=== PATIENT | female | born 1960 | race Caucasian/White ===

== ENCOUNTER 2017-01-11 21:37 | Emergency (ER) | payer MEDICAID ==
[~2017-01-11] VITALS: Ht 157.5 cm; Wt 88.4 kg
[~2017-01-11 21:37] MED LIST: FURO20 PO; GABA400C5 PO; LORA-392 PO; MECL25 PO; PERC10TA27 PO; POTA20PA PO
[2017-01-11 21:46] VITALS: BP 136/83; PULSE 84; RESP 16; TEMP 97.3; O2SAT 97
[2017-01-11] MEDS ORDERED: LISI-515 PO (22:09)
[2017-01-11] MEDS ORDERED: XANA1TAB2 PO (22:09)
[2017-01-11] MEDS ORDERED: FURO1TAB62 PO (22:09)
[2017-01-11] MEDS ORDERED: ONDANSETRON HCL 4 MG/2 ML VIAL IM ONE (22:15)
[2017-01-11] MEDS ORDERED: MORPHINE SULFATE 4 MG/ML INJ IM ONE (22:15)
[2017-01-11] MEDS ORDERED: KETOROLAC TROMETHAMINE 60 MG/2 ML (IM) VIAL IM ONE (22:15)
--- NOTE | 2017-01-11 22:26 | PD ---
HPI Chief Complaint: Fall Time Seen by Provider: 22:23 Travel History International Travel<30 days: No Contact w/Intl Traveler<30days: No Traveled to known affect area: No History of Present Illness HPI 57-year-old female that presents to the ED for evaluation of trip and fall today. Per patient this happened around 8:00. Patient apparently slipped and fell using sandals. Patient landed on her left side. Mainly on the left shoulder as well as the left ribs. Patient has chronic numbness to the lower legs secondary to back injuries. Per patient she has 10 out of 10 pain. Examination patient is anxious and sobbing. She states that most of her pain is on her left rib cage. She points to the area just below the breast. She denies any prior injuries to this area. She also complains of left shoulder pain. No arm pain. No head injury or loss of consciousness. Patient is accompanied by family members who because patient did not hit her head or lose consciousness. No blurred vision or double vision. She does have a significant history of anxiety and chronic pain. Allergies to Imitrex and sulfa. Per patient she also has back pain in her mid back. No abdominal pain. No nausea or vomiting. PFSH Past Medical History Arthritis: Yes Anxiety: Yes Cardiac Catheterization: Yes Cardiovascular Problems: Yes COPD: Yes Diminished Hearing: No Hypertension: Yes Musculoskeletal: Yes (bone on bone lt numbness legs) Respiratory: Yes (COPD) Immunizations Current: Yes Myocardial Infarction: Yes Tetanus Vaccination: < 5 Years Influenza Vaccination: Yes ?: Not Menopausal: Yes Social History Alcohol Use: No Tobacco Use: No (QUIT 1999) Substance Use: No Allergies-Medications (Allergen,Severity, Reaction): Coded Allergies: Imitrex (Verified Allergy, Unknown, Chest Pain, 01/11/17) Sulfa (Verified Allergy, Unknown, Hives, 01/11/17) Reported Meds & Prescriptions Reported Meds & Active Scripts Active Reported Xanax (Alprazolam) 1 Mg Tab 1 Mg PO BID PRN Lasix (Furosemide) 20 Mg Tab 20 Mg PO DAILY Lisinopril 20 Mg Tab 20 Mg PO DAILY Review of Systems Except as stated in HPI: all other systems reviewed are Neg Physical Exam Narrative GENERAL: SKIN: Warm and dry. HEAD: Atraumatic. Normocephalic. EYES: Pupils equal and round. No scleral icterus. No injection or drainage. ENT: No nasal bleeding or discharge. Mucous membranes pink and moist. Tongue is midline. No uvula deviation. NECK: Trachea midline. No JVD. CARDIOVASCULAR: Regular rate and rhythm. No murmurs, S3, S4. RESPIRATORY: No accessory muscle use. Clear to auscultation. Breath sounds equal bilaterally. GASTROINTESTINAL: Abdomen soft, non-tender, nondistended. Hepatic and splenic margins not palpable. MUSCULOSKELETAL: Extremities without clubbing, cyanosis, or edema. No obvious deformities. Full range of motion of the upper and lower extremities bilaterally with exception of the left shoulder which he has pain with abduction. Patient has pain with palpation of the left rib cage. No obvious deformity noted. No obvious cervical, thoracic, lumbar spine tenderness to palpation. Full range of motion lower extremities with 2+ pulses bilaterally. NEUROLOGICAL: Awake and alert. No obvious cranial nerve deficits. Motor grossly within normal limits. Five out of 5 muscle strength in the arms and legs. Normal speech. PSYCHIATRIC: Appropriate mood and affect; insight and judgment normal. Data Data Last Documented VS Vital Signs Date Time Temp Pulse Resp B/P Pulse Ox O2 Delivery O2 Flow Rate FiO2 01/11/17 22:09 01/11/17 21:46 97.3 84 16 97 Orders Morphine Inj (Morphine Inj) (01/11/17 22:15) Ondansetron Inj (Zofran Inj) (01/11/17 22:15) Ketorolac Inj (Toradol Inj) (01/11/17 22:15) Shoulder, Complete (>2vws) (01/11/17 22:21) Ice/Cold Pack (01/11/17 22:21) Ribs, Uni (W/Exp Cxr-Min 3vw) (01/11/17 22:21) Spine, Thoracic-Ap/Lat/Sw(3vw) (01/11/17 22:21) [facility] Medical Decision Making Medical Screen Exam Complete: Yes Emergency Medical Condition: Yes Medical Record Reviewed: Yes Differential Diagnosis Fracture versus contusion versus bruise versus fall versus pneumothorax Narrative Course 57-year-old female that presents to the ED for evaluation of fall. Patient was properly examined and was found to have signs and symptoms consistent with appears to be mechanical fall. Imaging was ordered. Patient was given IM pain medications. Case will be signed out to my attending pending imaging results and disposition. Diagnosis Primary Impression: Fall Qualified Code: W19.XXXA - Fall, initial encounter Jose Armando Ang Jan 11, 2017 22:26
--- NOTE | 2017-01-11 23:20 | RADRPT ---
EXAM DATE/TIME: 01/11/2017 22:46 [facility] COMPARISON: No previous studies available for comparison. INDICATIONS : Left shoulder pain post fall today MEDICAL HISTORY : None. SURGICAL HISTORY : None. ENCOUNTER: Initial ACUITY: 1 day PAIN SCORE: 10/10 LOCATION: Left entire shoulder FINDINGS: 4 views of the left shoulder demonstrate no fracture or dislocation. Acromioclavicular joint is intac t without osteoarthritis. Mineralization is present in the region of the coracoclavicular ligaments. No soft tissue abnormality or radiopaque foreign body is identified. CONCLUSION: No acute left shoulder abnormality is identified. There is osteoarthritis of the acromioclavicular sanrda int with findings suggesting old trauma in the coracoclavicular ligament region. Nader Gage MD on January 11, 2017 at 23:16 Board Certified Radiologist. This report was verified electronically.
--- NOTE | 2017-01-11 23:30 | RADRPT ---
EXAM DATE/TIME: 01/11/2017 22:40 [facility] COMPARISON: No previous studies available for comparison. INDICATIONS : Left sided rib pain post fall today MEDICAL HISTORY : None. SURGICAL HISTORY : None. ENCOUNTER: Initial ACUITY: 1 day PAIN SCORE: 10/10 LOCATION: Left posterior ribs FINDINGS: 5 views of the chest and left ribs demonstrate minimally displaced fractures of the seventh, eighth, and ninth ribs laterally. No pneumothorax is visualized. The surrounding structures demonstrate no ac samuel finding. CONCLUSION: Minimally displaced acute appearing left rib fractures involving the seventh, eighth, ninth ribs. Nader Gage MD on January 11, 2017 at 23:26 Board Certified Radiologist. This report was verified electronically.
--- NOTE | 2017-01-11 23:31 | RADRPT ---
EXAM DATE/TIME: 01/11/2017 22:45 [facility] COMPARISON: No previous studies available for comparison. INDICATIONS : Upper thoracic spine pain post fall today MEDICAL HISTORY : None. SURGICAL HISTORY : None. ENCOUNTER: Initial ACUITY: 1 day PAIN SCORE: 10/10 LOCATION: Upper thoracic spine FINDINGS: 3 views of the thoracic spine demonstrate no fracture or compression deformity. There is no anterolis thesis or retrolisthesis. There are endplate osteophytes at multiple levels. Visualized surrounding structures demonstrate no acute abnormality. CONCLUSION: Mild degenerative change of the thoracic spine. No acute finding is identified. Nader Gage MD on January 11, 2017 at 23:29 Board Certified Radiologist. This report was verified electronically.
[2017-01-11] MEDS ORDERED: oxyCODONE/ACETAMINOPHEN 5 MG/325 MG TAB PO ONE (23:45)
[2017-01-11] MEDS ORDERED: PERC5TAB12 PO (23:49)
--- NOTE | 2017-01-11 23:49 | PD ---
Physical Exam Narrative I, Dr. Okeefe, have reviewed the advance practice practitioner's documentation and am in agreement, met with the patient face to face, made the diagnosis, and the medical decision making was done by me. *My assessment and Findings: Patient is a 57-year-old female comes in after a fall. She is complaining of pain to her right side that wraps into her back. She says the pain is worse when she takes deep breath or talks. Exam shows lungs are clear to auscultation. Tenderness to the chest wall. Data Data Last Documented VS Vital Signs Date Time Temp Pulse Resp B/P Pulse Ox O2 Delivery O2 Flow Rate FiO2 01/11/17 22:09 01/11/17 21:46 97.3 84 16 97 Orders Morphine Inj (Morphine Inj) (01/11/17 22:15) Ondansetron Inj (Zofran Inj) (01/11/17 22:15) Ketorolac Inj (Toradol Inj) (01/11/17 22:15) Shoulder, Complete (>2vws) (01/11/17 22:21) Ice/Cold Pack (01/11/17 22:21) Ribs, Uni (W/Exp Cxr-Min 3vw) (01/11/17 22:21) Spine, Thoracic-Ap/Lat/Sw(3vw) (01/11/17 22:21) Resp Incentive Spirometry (01/11/17 ) Oxycodone-Acetamin 5-325 Mg (Percocet (01/11/17 23:45) MDM Supervised Visit with DEIRDRE: Yes Narrative Course X-rays performed show fractures of ribs 7, 8, 9. She was given Toradol, morphine. She says she is feeling better. She will be discharged with an incentive spirometer as well as a prescription for Percocet. She is advised she needs to use the incentive spirometer several times a day and sure she is taking deep breaths. Advised that she could develop pneumonia if she does not take deep breaths. Advised to return to the hospital she is unable to control her pain. She says she would like to go home at this time. Advised follow-up with her primary doctor. Advised to return as needed for any worsening symptoms. Diagnosis Primary Impression: Fall Qualified Code: W19.XXXA - Fall, initial encounter Additional Impression: Rib fractures Qualified Code: S22.41XA - Closed fracture of multiple ribs of right side, initial encounter Patient Instructions: General Instructions, Rib Fracture (ED) Additional Instruction: Take pain medicine as needed. Use the incentive spirometer several times per day and ensure your taking deep breaths. Follow up with your primary doctor. Return to the emergency department as needed for any worsening symptoms. Scripts Oxycodone-Acetaminophen (Percocet)5-325 mg Tab1 Tab PO Q6H PRN (PAIN) #15 TAB Ref 0 Prov:Bree Okeefe MD 01/11/17 Disposition: 01 DISCHARGE HOME Condition: Stable Bree Okeefe MD Jan 11, 2017 23:49
[2017-01-12 00:41] VITALS: RESP 18
[2017-01-12 00:45] VITALS: BP 132/85
== END 2017-01-12 00:45 | disposition home or self-care (01) ==
LOC: PHEFT 21:37
DX: S22.42XA Multiple fractures of ribs, left side, initial encounter for closed fracture (principal); W01.0XXA Fall on same level from slipping, tripping and stumbling without subsequent striking against object, initial encounter
CPT/HCPCS: 71101; 72072; 73030; 94150; 96372; 99284; J1885; J2270; J2405

== ENCOUNTER 2017-03-16 14:59 | Inpatient (IN) | payer MEDICAID ==
[~2017-03-16] VITALS: Ht 157.5 cm; Wt 87.9 kg
[~2017-03-16 14:59] MED LIST changes: +FURO1TAB62 PO; -FURO20 PO; -GABA400C5 PO; +LISI-515 PO; -LORA-392 PO; -MECL25 PO; -PERC10TA27 PO; +PERC5TAB12 PO; -POTA20PA PO; +XANA1TAB2 PO
[2017-03-16 17:55] VITALS: BP 131/87; PULSE 107; RESP 17; TEMP 99.5; O2SAT 98
[2017-03-16] MEDS ORDERED: traZODone HCL 100 MG TAB PO SCH (21:30)
[2017-03-16] MEDS ORDERED: ALUMINUM/MAGNESIUM/SIMETH 30 ML CUP PO PRN (22:00)
[2017-03-16] MEDS ORDERED: MAGNESIUM HYDROXIDE SUSP 30 ML CUP PO PRN (22:00)
[2017-03-17 05:10] VITALS: BP 103/68; PULSE 96; RESP 17; TEMP 97.3; O2SAT 99
[2017-03-17] MEDS: LISINOPRIL 20 MG TAB PO SCH (09:00)
[2017-03-17] MEDS: NICOTINE 21 MG/24 HR PATCH T-DERMAL SCH (09:00)
[2017-03-17] MEDS ORDERED: FUROSEMIDE 20 MG TAB PO SCH (09:00)
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
[2017-03-17] MEDS: CEFUROXIME AXETIL 250 MG TAB PO SCH ×2 (14:00→20:23)
[2017-03-17] MEDS: PYRIDOXINE HCL 50 MG TAB PO SCH (14:00)
[2017-03-17 17:05] VITALS: BP 117/80; PULSE 85; RESP 17; TEMP 98.3; O2SAT 100
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
[2017-03-17] MEDS ORDERED: SODIUM CHLORID 0.9% 500 ML INJ 500 ML IV ONE (18:00)
[2017-03-17 19:20] LABS: AUTOMATED NEUTROPHIL # 9.2 TH/MM3 (1.8-7.7); BASOPHIL # 0.1 TH/MM3 (0-0.2); BASOPHIL % 0.4 % (0.0-2.0); EOSINOPHIL # 0.3 TH/MM3 (0-0.4); EOSINOPHIL % 2.1 % (0.0-4.0); HEMATOCRIT 23.3 % (35.0-46.0); HEMO FLAGS DIFF FINAL; LYMPH % 16.2 % (9.0-44.0); MEAN CELL VOLUME 96.8 FL (80.0-100.0); MEAN CORPUSCULAR HEMOGLOBIN 31.9 PG (27.0-34.0); MONO % 6.6 % (0.0-8.0); NEUT % 74.7 % (16.0-70.0); PLATELET COUNT 370 TH/MM3 (150-450); RED BLOOD COUNT 2.41 MIL/MM3 (4.00-5.30); RED CELL DISTRIBUTION WIDTH 13.8 % (11.6-17.2); WHITE BLOOD COUNT 12.3 TH/MM3 (4.0-11.0)
[2017-03-17 19:37] LABS: ANION GAP 11 MEQ/L (5-15); AST (GOT) 19 U/L (15-37); BICARBONATE 24.1 MEQ/L (21.0-32.0); BLOOD UREA NITROGEN 9 MG/DL (7-18); CHLORIDE 104 MEQ/L (98-107); GLOMERULAR FILTRATION RATE 78 ML/MIN (>89); POTASSIUM 3.7 MEQ/L (3.5-5.1); SODIUM (NA) 139 MEQ/L (136-145)
[2017-03-17 19:38] LABS: ALT (GPT) 21 U/L (10-53)
[2017-03-17 19:48] LABS: ALKALINE PHOSPHATASE 77 U/L (45-117); TOTAL BILIRUBIN ADULT 0.1 MG/DL (0.2-1.0)
[2017-03-17] MEDS: REMOVE OLD NICOTINE PATCH T-DERMAL SCH (20:23)
[2017-03-17] MEDS: traZODone HCL 100 MG TAB PO PRN (23:06)
[2017-03-18 04:42] VITALS: BP 136/69; PULSE 89; RESP 18; TEMP 98.4; O2SAT 94
[2017-03-18 05:07] LABS: ANION GAP 8 MEQ/L (5-15); BICARBONATE 26.5 MEQ/L (21.0-32.0); BLOOD UREA NITROGEN 8 MG/DL (7-18); CHLORIDE 106 MEQ/L (98-107); GLOMERULAR FILTRATION RATE 98 ML/MIN (>89); POTASSIUM 4.2 MEQ/L (3.5-5.1); SODIUM (NA) 140 MEQ/L (136-145)
[2017-03-18 05:09] LABS: HDL CHOLESTEROL 38.7 MG/DL (40.0-60.0); LDL CHOLESTEROL 92 MG/DL (0-99)
[2017-03-18] MEDS: NICOTINE 21 MG/24 HR PATCH T-DERMAL SCH (09:00)
[2017-03-18] MEDS: CEFUROXIME AXETIL 500 MG TAB PO SCH ×2 (09:19→21:34)
[2017-03-18] MEDS: LISINOPRIL 20 MG TAB PO SCH (09:20)
[2017-03-18] MEDS: PYRIDOXINE HCL 50 MG TAB PO SCH (09:20)
[2017-03-18] MEDS: ESCITALOPRAM OXALATE 10 MG TAB PO SCH (09:21)
[2017-03-18] MEDS: GABAPENTIN 300 MG CAP PO SCH ×2 (09:22→21:34)
[2017-03-18 09:24] VITALS: BP 117/60; PULSE 95
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
[2017-03-18 11:42] LABS: HEMOGLOBIN A1a 1.3 %; HEMOGLOBIN A1b 0.9 %; HEMOGLOBIN Ao 83.8 %; HEMOGLOBIN F 1.4 %; HEMOGLOBIN LA1C 2.4 %; HEMOGLOBIN P3 5.7 %
[2017-03-18] MEDS: ACETAMINOPHEN 325 MG TAB PO PRN (13:16)
--- NOTE | 2017-03-18 16:23 | HHI.PR ---
Subjective Remarks Discussed with nursing, no acute deterioration since last night. Patient herself says she feels better in regards to her back pain, has started the gabapentin as well as physical therapy Objective Vital Signs Date Time Temp Pulse Resp B/P (MAP) Pulse Ox O2 Delivery O2 Flow Rate FiO2 03/18/17 09:24 95 117/60 (79) 03/18/17 04:42 98.4 89 18 136/69 (91) 94 03/17/17 17:05 98.3 85 17 117/80 (92) 100 I/O 03/17/17 03/17/17 03/17/17 03/18/17 03/18/17 03/18/17 07:00 15:00 23:00 07:00 15:00 23:00 Intake Total 240 ml 980 ml 540 ml Balance 240 ml 980 ml 540 ml Intake Oral 240 ml 480 ml 540 ml IV Total 500 ml # Voids 2 5 Result Diagram: 03/17/17 1820 03/18/17 0352 A/P Assessment and Plan 57-year-old white female admitted to psychiatry unit for suicidal attempt with Windex ingestion causing renal failure and severe metabolic acidosis and encephalopathy, discharged from outside facility for medical stabilization Bacteremia MSSA - Finish course of cefuroxime as prescribed by OSH. Acute renal impairment - resolved w/ fluid bolus. Hypertension - Continue lisinopril Mood disorders - Psychiatry managing chronic back pain - improving, continue gabapentin and PT. Stable for psych from hospitalist standpoint, nothing further to add other than to continue current management. Pt has been afebrile, shows no signs of acute organic medical illness, HTN is chronic and bacteremia just needs to be managed as it is currently. Kenroy Avitia MD Mar 18, 2017 16:23
[2017-03-18] MEDS: REMOVE OLD NICOTINE PATCH T-DERMAL SCH (21:00)
[2017-03-18] MEDS: traZODone HCL 100 MG TAB PO PRN (21:34)
[2017-03-19 05:09] VITALS: BP 100/63; PULSE 88; RESP 18; TEMP 98.2; O2SAT 96
[2017-03-19] MEDS: NICOTINE 21 MG/24 HR PATCH T-DERMAL SCH (09:00)
[2017-03-19] MEDS: CEFUROXIME AXETIL 500 MG TAB PO SCH ×2 (09:11→21:20)
[2017-03-19] MEDS: LISINOPRIL 20 MG TAB PO SCH (09:11)
[2017-03-19] MEDS: ESCITALOPRAM OXALATE 10 MG TAB PO SCH (09:12)
[2017-03-19] MEDS: PYRIDOXINE HCL 50 MG TAB PO SCH (09:12)
[2017-03-19] MEDS: GABAPENTIN 300 MG CAP PO SCH ×2 (09:12→21:20)
[2017-03-19] MEDS: hydrOXYzine HCL 50 MG TAB PO PRN ×2 (09:13→21:30)
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
[2017-03-19] MEDS: ACETAMINOPHEN 325 MG TAB PO PRN (16:12)
--- NOTE | 2017-03-19 16:18 | HHI.PR ---
Subjective Remarks Discussed with nursing, no acute deterioration since last night. There is a concern about the patient complaining of fatigue and that her admission hemoglobin was 7.7, however when I asked the patient herself she says she doesn' t feel tired or lightheaded when she walks. Objective Vital Signs Date Time Temp Pulse Resp B/P (MAP) Pulse Ox O2 Delivery O2 Flow Rate FiO2 03/19/17 05:09 98.2 88 18 100/63 (75) 96 I/O 03/18/17 03/18/17 03/18/17 03/19/17 03/19/17 03/19/17 07:00 15:00 23:00 07:00 15:00 23:00 Intake Total 980 ml 540 ml 800 ml 0 ml 720 ml Balance 980 ml 540 ml 800 ml 0 ml 720 ml Intake Oral 480 ml 540 ml 800 ml 0 ml 720 ml IV Total 500 ml # Voids 5 3 1 Result Diagram: 03/17/17 1820 03/18/17 0352 Objective Remarks No acute distress, lying in bed, awake, alert Unlabored breathing, clear to auscultation bilaterally, no obvious pallor noted on skin A/P Assessment and Plan 57-year-old white female admitted to psychiatry unit for suicidal attempt with Windex ingestion causing renal failure and severe metabolic acidosis and encephalopathy, discharged from outside facility for medical stabilization Anemia - Likely iron deficient and chronic, will start iron tabs w/ vit C. Bacteremia MSSA - Finish course of cefuroxime as prescribed by OSH . Hypertension - Continue lisinopril Mood disorders - Psychiatry managing chronic back pain - continue gabapentin and PT. Stable for psych from hospitalist standpoint, nothing further to add other than to continue current management. Pt has been afebrile, shows no signs of acute organic medical illness, HTN is chronic and bacteremia just needs to be managed as it is currently. Kenroy Avitia MD Mar 19, 2017 16:18
[2017-03-19 18:00] VITALS: BP 94/51; PULSE 98; RESP 17; TEMP 98.4; O2SAT 95
[2017-03-19] MEDS: REMOVE OLD NICOTINE PATCH T-DERMAL SCH (21:00)
[2017-03-19] MEDS: FERROUS SULFATE 325 MG (65 MG ELEMENTAL IRON) TAB PO SCH (21:20)
[2017-03-19] MEDS: ASCORBIC ACID 500 MG TAB PO SCH (21:20)
[2017-03-20] MEDS: hydrOXYzine HCL 50 MG TAB PO PRN ×3 (04:10→13:35)
[2017-03-20] MEDS: ACETAMINOPHEN 325 MG TAB PO PRN ×2 (04:10→13:36)
[2017-03-20 05:36] VITALS: BP 122/70; PULSE 84; RESP 18; TEMP 98; O2SAT 98
[2017-03-20] MEDS: FERROUS SULFATE 325 MG (65 MG ELEMENTAL IRON) TAB PO SCH (08:33)
[2017-03-20] MEDS: ESCITALOPRAM OXALATE 10 MG TAB PO SCH (08:33)
[2017-03-20] MEDS: CEFUROXIME AXETIL 500 MG TAB PO SCH (08:33)
[2017-03-20] MEDS: ASCORBIC ACID 500 MG TAB PO SCH (08:33)
[2017-03-20] MEDS: LISINOPRIL 20 MG TAB PO SCH (08:33)
[2017-03-20] MEDS: GABAPENTIN 300 MG CAP PO SCH (08:33)
[2017-03-20] MEDS: NICOTINE 21 MG/24 HR PATCH T-DERMAL SCH (08:34)
[2017-03-20] MEDS: PYRIDOXINE HCL 50 MG TAB PO SCH (08:59)
[2017-03-20] MEDS ORDERED: LISI-515 PO (11:00)
[2017-03-20] MEDS ORDERED: NEUR300C PO (11:00)
[2017-03-20] MEDS ORDERED: ESCI10TA PO (11:00)
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
[2017-03-20] MEDS ORDERED: CEFU1TAB20 PO (11:30)
[2017-03-20] MEDS ORDERED: FERR325T20 PO (11:36)
[2017-03-20] MEDS ORDERED: B-650TAB PO (11:36)
[2017-03-20] MEDS ORDERED: VITA500T2 PO (11:36)
== END 2017-03-20 14:27 | disposition home or self-care (01) | DRG 882 ==
LOC: H260 18:11 → H4EA 03-17 20:28
PROVIDERS: ADMIT Psychiatry & Neurology Psychiatry; ATTEND Psychiatry & Neurology Psychiatry
DX: F43.25 Adjustment disorder with mixed disturbance of emotions and conduct (principal); I10 Essential (primary) hypertension; G89.29 Other chronic pain; Z59.0 Homelessness; M54.5 Low back pain; D50.9 Iron deficiency anemia, unspecified; Z87.891 Personal history of nicotine dependence
CPT/HCPCS: 80048; 80053; 80061; 83036; 84443; 85025; J7040